=== PATIENT | male | born 1975 | race Caucasian/White ===

== ENCOUNTER 2024-07-17 08:26 | Outpatient (CLI) | payer BC, MEDICAID, SELFPAY ==
--- NOTE | 2024-07-17 08:35 | MR_ITS ---
WS: [id number] MRI HEAD WITHOUT CONTRAST TECHNIQUE: Sagittal T1, T2 axial, T2 axial FLAIR, axial and coronal T1 images, axial susceptibility w eighted imaging, axial diffusion weighted images, and coronal T2 images were obtained. CLINICAL INFORMATION: R41.3 COMPARISON: None. FINDINGS: No evidence of restricted diffusion to suggest acute ischemia. No suspicious intracranial signal abno rmalities. Mild parenchymal volume loss. Normal posterior fossa. Normal vascular flow voids at the sk ull base. No extra-axial fluid collections. No evidence of mass or mass effect. Paranasal sinuses are well aerated. Slight mucosal thickening LEFT posterior ethmoid air cells. Mastoid air cells are well aerated. No he mosiderin on susceptibly weighted images. Normal optic chiasm and pituitary infundibulum. Temporal lo bes and hippocampal formations are normal in appearance. MR/MR head wo con* [id number] IMPRESSION: 1. No evidence of restricted diffusion to suggest acute ischemia. 2. No suspicious intracranial signal normalities. Mild parenchymal volume loss . 3. No hemosiderin on susceptibility-weighted images. 4. Normal optic chiasm and pituitary infundibulum. 5. No other acute findings.
== END 2024-07-17 08:27 | disposition home or self-care (01) ==
LOC: RAD 08:29
PROVIDERS: PCP Nurse Practitioner Family; Visit Provider Nurse Practitioner Family
DX: R41.3 Other amnesia (principal)
CPT/HCPCS: 70551

== ENCOUNTER 2024-08-03 11:40 | Emergency (ER) | payer BC, MEDICAID, SELFPAY ==
--- NOTE | 2024-08-03 11:43 | ECG_ITS ---
[facility] Test Date: 2024-[facility]-03 Pat Name: Clayton Adamson Department: Room: Gender: Male Monitoring Analyst: : 1975 Requested By: Rosemary Damico Order Number: [id number] Crispin MD: Selwyn Humphrey M.D. Measurements Intervals [place] Rate: 125 P: 87 AL: 171 QRS: 135 QRSD: 115 T: 58 QT: 304 QTc: 439 Interpretive Statements SINUS TACHYCARDIA INCOMPLETE RIGHT BUNDLE BRANCH BLOCK POSSIBLE RIGHT VENTRICULAR HYPERTROPHY No previous ECG available for comparison Electronically Signed On 08-03-2024 12:07:12 CDT by Selwyn Humphrey M.D. [id number]
--- NOTE | 2024-08-03 11:43 | XR_ITS ---
WS: [id number] Portable AP upright chest, 08/03/2024 Clinical Data: cp Comparison: PA chest, 09/18/2017 Findings: No nodules, masses or effusions are seen. The heart is normal. The pulmonary vascularity is not increased. No pneumonia or pneumothorax is seen. XR/XR chest 1V portable [id number] Impression: Negative chest.
[2024-08-03 11:48] VITALS: BP 111/73; PULSE 133; TEMP 36.7; O2SAT 98; BMI 21.1
[2024-08-03 12:27] LABS: Basophils % 0.3 %; Eosinophils % 0.2 %; Hematocrit 49.7 % (37-53); Lymphocytes # 2.9 10^3/uL (0.8-4.8); Mean Corpuscular HGB Conc 33.8 g/dL (30-55); Mean Corpuscular Hemoglobin 31.6 pg (27-33); Mean Corpuscular Volume 93.4 fl (82-101); Mean Platelet Volume 9.4 fL (7.4-10.4); Monocytes # 1.9 10^3/uL (0.2-0.9); Monocytes % 12.6 %; Neutrophils # 10.27 10^3/uL (1.8-7.7); Nucleated Red Blood Cells % 0 %; Platelet Count 530 10^3/cmm (157-399); Red Blood Count 5.32 10^6/uL (3.85-5.65); Red Cell Distribution Width 12.9 % (12.1-15.1); White Blood Count 15.32 10^3/uL (3.29-11.43)
[2024-08-03 12:31] LABS: INR 0.94 (0.8-1.2)
[2024-08-03 12:41] LABS: Alanine Aminotransferase 10 U/L (0-41); Alkaline Phosphatase 83 U/L (40-130); Anion Gap 19.3 (5-19); Aspartate Amino Transferase 11 U/L (0-40); Blood Urea Nitrogen 17 mg/dL (6-20); Calcium 10.1 mg/dL (8.5-10.5); Carbon Dioxide 22 mmol/L (22-29); Chloride 92 mmol/L (98-107); Creatinine Clr Calc Pharmacy 80.1925; Globulin 2.6 g/dL (1.3-4.6); Glomerular Filtration Rate 79.1 mL/min (90-130); Glucose 106 mg/dL (65-115); Lipase 27 U/L (13-60); Osmolality Calculated 270 mOsm/kg (285-295); Potassium 4.3 mmol/L (3.5-5.1); Sodium 129 mmol/L (136-145); Total Bilirubin 0.6 mg/dL (0.15-1.2); Total Protein 7.6 g/dL (6.6-8.7); Troponin(5th) Baseline 25 ng/L (0-15)
--- NOTE | 2024-08-03 13:36 | CT_ITS ---
WS: [id number] CT ABDOMEN AND PELVIS WITH CONTRAST HISTORY: upper abd pain TECHNIQUE: Imaging performed of the abdomen and pelvis with IV contrast. Single phase imaging of the abdomen. Coronal and sagittal reformats are submitted. All CT scans at [facility] use at [address] one of these dose optimization techniques: automated exposure control; mA and/or kV adjustment per patient size (includes targeted exams where dose is matched to clinical indication); or iterative re construction. IV CONTRAST: Omnipaque 350; 100 mL IV. Oral contrast: No DLP: 323.47 mGy.cm COMPARISON: None available. Lower thorax: Lung bases are clear. Heart is normal size. No hiatal hernia. Liver/biliary system: Normal size with no intrahepatic dilatation. Gallbladder: Normal. No gallstones or wall thickening. No pericholecystic fluid. Pancreas: Normal size pancreas and pancreatic duct. No adjacent inflammation. Spleen: Normal size spleen. No mass or infarct. Adrenal glands: Normal. Right kidney: Normal. Left kidney: Normal. Aorta: Moderate atherosclerosis with no aneurysm. Lymphadenopathy: None. Free fluid: None. GI tract: Moderate gastric wall thickening. Gastric wall thickening extends towards the antrum. There is no obstruction. Normal small bowel. Normal appendix. No colon obstruction. Mild sigmoid diverticu losis. Abdominal wall: Unremarkable abdominal wall. No hernia. Pelvis: No free fluid or adenopathy within the pelvis. Bones: Unremarkable. CT/CT abdomen pelvis w con* [id number] IMPRESSION: 1. Normal appendix. 2. No renal obstruction. 3. Moderate diffuse gastric wall thickening. Consider gastritis. 4. No GI tract obstruction.
--- NOTE | 2024-08-03 13:37 | ED_ITS ---
HPI - Chest Pain 2 General: Chief Complaint: Chest Pain Stated Complaint: tia events? pain in chest and shoulder Time Seen by Provider: 08/03/24 13:31 Source: patient Mode of arrival: ambulatory Limitations: no limitations History of Present Illness: 48-year-old male states for last 2 days he been having some epigastric pain. States had difficulty swallowing at x 2 and having some pain when he swallows. States has had episodes like this in the past. Has had no vomiting denies any diarrhea said some burning sensation into his chest. Denies any cough or fever Associated symptoms: Reports abdominal pain and nausea; Deny dyspnea, fever(s) or vomiting Related Data Previous Rx's Medication Instructions Recorded ondansetron 4 mg disintegrating 4 mg PO Q6H PRN nausea and 08/03/24 tablet vomiting #14 tabs pantoprazole 40 mg tablet,delayed 40 mg PO DAILY #60 tabs 08/03/24 release (Protonix) Allergies Allergy/AdvReac Type Severity Reaction Status Date / Time Penicillins Allergy Unknown Verified 08/03/24 11:52 Review of Systems 2 Const: Denies: fever(s), chills, body aches or change in appetite ENMT: Denies: throat pain or dental pain Card: Denies: chest pain Resp: Denies: dyspnea GI: Reports: abdominal pain and nausea; Denies: vomiting or diarrhea Musc: Denies: neck pain or back pain Skin/Breast: Denies: rash Neuro: Denies: headache(s) Physical Exam 2 Const: COMMON NORMALS: patient oriented x3 GENERAL APPEARANCE: in distress HENMT: COMMON NORMALS: normocephalic and atraumatic HEAD & SCALP: n ormocephalic and atraumatic Neck/C-Spine: COMMON NORMALS: full ROM and supple Chest: COMMONS NORMALS: normal inspection of the chest Resp: COMMON NORMALS: normal respiratory effort, No retractions, No use of accessory muscles and clear to auscultation bilaterally AUSCULTATION: clear to auscultation bilaterally Cardio: COMMON NORMALS: regular rhythm and No murmurs present (Cardio) R ATE: tachycardic RHYTHM: regular rhythm GI: COMMON NORMALS: Normal to inspection, nondistended, normoactive bowel sounds present, Soft to palpation, non-tender and no masses PALPATION: Yes Soft to palpation Extremity: COMMON NORMALS: normal to inspection and full ROM Neuro: COMMON NORMALS: patient oriented x3, moves all extremities and no focal motor deficits Psych: COMMON NORMALS: mental status grossly normal, Normal thought process present and cooperative THOUGHT PROCESS: Normal thought process present Skin: COMMON NORMALS: no rashes or lesions noted and no wounds GENERAL SKIN EXAM: no rashes or lesions noted Course 2 Vital Signs: Vital signs: Vital Signs Temperature 98.1 F 08/03/24 11:48 Pulse Rate 90 08/03/24 15:58 Blood Pressure 118/84 08/03/24 15:58 Pulse Oximetry 97 08/03/24 15:58 Oxygen Delivery Me thod Room Air 08/03/24 11:48 MDM - Chest Pain Medical Decision Making Patient presents here with epigastric pain consistent with a likely gastritis CT showed gastritis as well as pain was resolved here with GI cocktail no signs of acute coronary syndrome we will start him on Protonix we will get him follow-up with surgery as he likely needs a scope in the future he is return if worsening he understands agrees to plan Medical Records I reviewed the patient's medical records. Lab Data I reviewed the patient's lab results. 08/03/24 12:02 08/03/24 12:02 Radiology Impressions Chest X-Ray 08/03/24 11:43 Impression: Negative chest. Abdomen/Pelvis CT 08/03/24 13:36 IMPRESSION: 1. Normal appendix. 2. No renal obstruction. 3. Moderate diffuse gastric wall thickening. Consider gastritis. 4. No GI tract obstruction. Laboratory Results WBC 15.32 10^3/uL (3.29-11.43) H 08/03/24 12:02 RBC 5.32 10^6/uL (3.85-5.65) 08/03/24 12:02 Hgb 16.80 g/dL (11.27-16.99) 08/03/24 12:02 Hct 49.7 % (37-53) 08/03/24 12:02 MCV 93.4 fl (82-101) 08/03/24 12:02 MCH 31.6 pg (27-33) 08/03/24 12:02 MCHC 33.8 g/dL (30-55) 08/03/24 12:02 RDW 12.9 % (12.1-15.1) 08/03/24 12:02 Plt Count 530 10^3/cmm (157-399) H 08/03/24 12:02 MPV 9.4 fL (7.4-10.4) 08/03/24 12:02 Neut % (Auto) 67.0 % 08/03/24 12:02 Lymph % (Auto) 19.0 % 08/03/24 12:02 [place] % (Auto) 12.6 % 08/03/24 12:02 Eos % (Auto) 0.2 % 08/03/24 12:02 Baso % (Auto) 0.3 % 08/03/24 12:02 Neut # (Auto) 10.27 10^3/uL (1.8-7.7) H 08/03/24 12:02 Lymph # (Auto) 2.9 10^3/uL (0.8-4.8) 08/03/24 12:02 [place] # (Auto) 1.9 10^3/uL (0.2-0.9) H 08/03/24 12:02 Eos # (Auto) 0.0 10^3/uL (0.0-0.8) 08/03/24 12:02 Baso # (Auto) 0.0 10^3/uL (0.0-0.1) 08/03/24 12:02 Nucleated RBC % (auto) 0 % 08/03/24 12:02 Nucleated RBCs # 0.0 /100WBC 08/03/24 12:02 PT 12.90 SECONDS (12.1-14.9) 08/03/24 12:02 INR 0.94 (0.8-1.2) 08/03/24 12:02 Sodium 129 mmol/L (136-145) L 08/03/24 12:02 Potassium 4.3 mmol/L (3.5-5.1) 08/03/24 12:02 Chloride 92 mmol/L (98-107) L 08/03/24 12:02 Carbon Dioxide 22 mmol/L (22-29) 08/03/24 12:02 Anion Gap 19.3 (5-19) H 08/03/24 12:02 BUN 17 mg/dL (6-20) 08/03/24 12:02 Creatinine 1.0 mg/dL (0.7-1.2) 08/03/24 12:02 GFR Calculation 79.1 mL/min (90-130) L 08/03/24 12:02 Glucose 106 mg/dL (65-115) 08/03/24 12:02 Calculated Osmolality 270 mOsm/kg (285-295) L 08/03/24 12:02 Calcium 10.1 mg/dL (8.5-10.5) 08/03/24 12:02 Total Bilirubin 0.6 mg/dL (0.15-1.2) 08/03/24 12:02 AST 11 U/L (0-40) 08/03/24 12:02 ALT 10 U/L (0-41) 08/03/24 12:02 Alkaline Phosphatase 83 U/L (40-130) 08/03/24 12:02 Troponin T Baseline 25 ng/L (0-15) H 08/03/24 12:02 Troponin T 120 Minute 23.52 ng/L (0-15) H 08/03/24 14:00 Delta Troponin T -1.48 ABS# (0-10) L 08/03/24 14:00 Total Protein 7.6 g/dL (6.6-8.7) 08/03/24 12:02 Albumin 5.0 g/dL (3.5-5.2) 08/03/24 12:02 Globulin 2.6 g/dL (1.3-4.6) 08/03/24 12:02 Lipase 27 U/L (13-60) 08/03/24 12:02 All radiology interpretation(s) finalized by discharge EKG Data EKG 1: I personally reviewed and interpreted this EKG as follows: EKG interpretation date: 08/03/24 EKG interpretation time: 11:43 Interpretation: sinus tach hr [address] elevation qrs 115 qtc 378 EKG 2: I personally reviewed and interpreted this EKG as follows: EKG interpretation date: 08/03/24 EKG interpretation time: 14:03 Interpretation: nsr hr [address] elevation qrs 92 qtc 411 Discharge Plan Discharge Patient Disposition: Home Clinical Impression: Abdominal pain Condition: Stable Prescriptions: New pantoprazole [Protonix] 40 mg tablet,delayed release (DR/EC) 40 mg PO DAILY Qty: 60 0RF ondansetron 4 mg tablet,disintegrating 4 mg PO Q6H PRN (Reason: nausea and vomiting) Qty: 14 0RF Discharge Orders: Discharge ED (Routine); Ordered 08/03/24 Ordered By: Rosemary Damico Referrals: Bonnie Barger [Primary Care Provider] - Discharge Diet: Advance as tolerated Discharge Activity: Resume usual activity Patient Instructions: Gastritis (ED), Abdominal Pain (ED) Coding Level of Care Code ED Qa Analyst for Leonides Zuñiga
--- NOTE | 2024-08-03 13:43 | ECG_ITS ---
[facility]03 Pat Name: Clayton Adamson Department: Room: Gender: Male Vacation Guide: : 1975 Requested By: Rosemary Damico Order Number: [id number] Crispin MD: Selwyn Humphrey M.D. Measurements Intervals [place] Rate: 94 P: 77 FL: 134 QRS: 22 QRSD: 92 T: 62 QT: 359 QTc: 450 Interpretive Statements SINUS RHYTHM POSSIBLE LEFT ATRIAL ENLARGEMENT [-0.1mV P-WAVE IN V1/V2] INDETERMINATE AXIS Compared to ECG 08/03/2024 11:43:28 No significant change Electronically Signed On 08-03-2024 17:17:29 CDT by Selwyn Humphrey M.D. [email or web address]
[2024-08-03] MEDS: lidocaine 2% viscous 15 ML, aluminum-mag hydrox-simethicon 30 ML, sucralfate oral liq 1 GM PO (13:50)
[2024-08-03] MEDS: ondansetron 2 mg/ML SDV 2 mL 4 MG IVP (13:50)
[2024-08-03] MEDS: iohexol 350 mg/mL 500 mL Btl (per mL) IV (14:31)
[2024-08-03 14:53] LABS: Troponin 5 2HR 23.52 ng/L (0-15)
[2024-08-03 14:55] LABS: Troponin 5 2HR Delta -1.48 ABS# (0-10)
[2024-08-03 15:25] VITALS: BP 110/88; PULSE 86; O2SAT 96
[2024-08-03 15:58] VITALS: BP 118/84; PULSE 90; O2SAT 97
--- NOTE | 2024-08-04 07:35 | DCPLANNER ---
messaged gen surg for er f/u
== END 2024-08-03 15:59 | disposition home or self-care (01) ==
PROVIDERS: Emergency Provider Emergency Medicine; PCP Nurse Practitioner Family
DX: R10.9 Unspecified abdominal pain (principal)
CPT/HCPCS: 36415; 71045; 74177; 80053; 83690; 84484; 85025; 85610; 93005; 96374; 99285; J2405

== ENCOUNTER 2024-09-05 06:51 | Day surgery (SDC) | payer BC, MEDICAID, SELFPAY ==
--- NOTE | 2024-09-05 06:07 | W.PM.OPSUD ---
Surgery/Procedure H&P Update DATE OF PROCEDURE: September 05, 2024 DATE H&P PERFORMED: 08/23/24 H&P UPDATE INFORMATION: I have reviewed H&P completed within last 30 days, I have examined patient prior to procedure, No changes to prior documentation and H&P is in [facility] EMR on date indicated PLANNED PROCEDURE: Operation Date: 09/05/24 08:00 Proposed Procedures p EGD 53361, 39945, G0121, K29.70(Not Applicable) - Dustin Mohamud MD s Colonoscopy(Not Applicable) - Dustin Mohamud MD
[2024-09-05 07:03] VITALS: BP 107/89; PULSE 85; RESP 16; TEMP 36.3; O2SAT 97; BMI 22.3
[2024-09-05] MEDS: sodium chloride 0.9% 500 ML 15 ML IV (07:22)
--- NOTE | 2024-09-05 07:56 | ANES.PREANE2 ---
Pre-Anesthetic Assessment Height/Weight: Height 5 ft 4 in Weight 130 lb Temp Pulse Resp BP Pulse Ox O2 Del Method 97.3 F L 85 16 107/89 97 Room Air 09/05/24 07:03 09/05/24 07:03 09/05/24 07:03 09/05/24 07:03 09/05/24 07:03 09/05/24 07:03 Preop Diagnosis: Screening colonoscopy/GERD Operation Date: 09/05/24 08:00 Proposed Procedures p EGD 22783, 17544, G0121, K29.70(Not Applicable) - Dustin Mohamud MD s Colonoscopy(Not Applicable) - Dustin Mohamud MD Last intake: Intake Last Liquid Date 09/04/24 Last Liquid Time 23:00 Last Solid Date 09/03/24 Last Solid Time 12:00 Social Tobacco and No alcohol Exam alert, oriented x 3, clear to auscultation bilaterally and regular rate & rhythm Airway Submandibular: within normal limits Cervical ROM: within normal limits Mallampati: Class II Dentition: full Comments: Comments: Very poor dentition, denies any loose Anesthetic Plan ASA status: 2 Anesthesia: MAC Other: No prior issues with anesthesia Completed bowel prep History of GERD, on Protonix Current smoker, denies inhaler use Patient denies any cardiac issues Prior TIAs, no residual symptoms METs greater than 4 Plan for MAC anesthetic Medications/Allergies Home Medications Medication Instructions Recorded Confirmed Last Taken Type ondansetron 4 mg disintegrating 4 mg PO Q6H PRN nausea and 08/03/24 08/30/24 09/03/24 Rx tablet vomiting #14 tabs pantoprazole 40 mg tablet,delayed 40 mg PO DAILY #60 tabs 08/03/24 08/30/24 09/03/24 Rx release (Protonix) Allergies Allergy/AdvReac Type Severity Reaction Status Date / Time Penicillins Allergy Unknown Verified 08/30/24 10:17 Current Medications Generic Name Dose Route Start Last Admin Trade Name Freq PRN Reason Stop Dose Admin Sodium Chloride 500 mls @ 15 mls/hr 09/05/24 06:59 09/05/24 07:22 Sodium Chloride 0.9% IV 09/06/24 06:58 15 mls/hr .Q24H PRN Administration COLONOSCOPY FLUIDS PFSH Anesthesia Family History (Updated 11/20/24 @ 10:19 by AGUSTINA Marques) Mother Cancer breast Heart attack Father Heart attack Social History (Updated 08/23/24 @ 10:19 by AGUSTINA Marques) Smoking and tobacco/nicotine status: current every day tobacco/nicotine user cigarettes Data Anesthesia Cardiac Studies: No Data to Display
[2024-09-05 09:02] VITALS: BP 131/87; PULSE 81; RESP 14; TEMP 36.4; O2SAT 99
[2024-09-05 09:17] VITALS: BP 142/97; PULSE 78; RESP 14; O2SAT 99
--- NOTE | 2024-09-05 09:35 | ANE.PACU2 ---
Inpatient post-anesthesia follow up: Airway intact: Yes Vital signs: Temperature 97.5 F Pulse Rate 78 Respiratory Rate 14 Blood Pressure 142/97 Pulse Oximetry 99 Oxygen Delivery Me thod Room Air Oxygen Flow Rate Fraction of Inspir ed Oxygen Hydration adequate: Yes Nausea and vomiting: No Pain level: 1 Mental status: Baseline
== END 2024-09-05 09:35 | disposition home or self-care (01) ==
PROVIDERS: PCP Nurse Practitioner Family; Visit Provider Surgery
PROC: 0DJ08ZZ Inspection of Upper Intestinal Tract, Via Natural or Artificial Opening Endoscopic (ICD-10-PCS; CPT 43235; principal; 2024-09-05 08:00)
PROC: 0DJD8ZZ Inspection of Lower Intestinal Tract, Via Natural or Artificial Opening Endoscopic (ICD-10-PCS; CPT 45378; 2024-09-05 08:00)
DX: Z12.11 Encounter for screening for malignant neoplasm of colon (principal); K29.70 Gastritis, unspecified, without bleeding; K21.00 Gastro-esophageal reflux disease with esophagitis, without bleeding; F17.210 Nicotine dependence, cigarettes, uncomplicated; K29.50 Unspecified chronic gastritis without bleeding; D12.8 Benign neoplasm of rectum; Z86.73 Personal history of transient ischemic attack (TIA), and cerebral infarction without residual deficits
CPT/HCPCS: 43239; 45380; 88305; 88342; J2405; J2704; J7040

== ENCOUNTER 2025-05-09 09:51 | Outpatient (CLI) | payer BC, MEDICAID, SELFPAY ==
--- NOTE | 2025-05-09 10:00 | US_ITS ---
WS: [id number] RIGHT UPPER QUADRANT ULTRASOUND HISTORY: Biliary Colic COMPARISON: CT 08/03/2024 Liver: 14.6 cm in length. Normal size liver and echogenicity. No bile duct dilatation or mass. Portal Vein: Normal hepatopetal flow with monophasic waveform. Gallbladder: Normally distended gallbladder with no stones or wall thickening. CBD: 0.2 cm Pancreas: Normal size and echogenicity. Right kidney: 10.0 cm in length. Normal size and echogenicity. No hydronephrosis or mass. Aorta and IVC: Unremarkable abdominal aorta and IVC. No ascites. US/US gall bladder [id number] IMPRESSION: Normal right upper quadrant ultrasound.
== END 2025-05-09 09:52 | disposition home or self-care (01) ==
LOC: RAD 09:52
PROVIDERS: PCP Nurse Practitioner Family; Visit Provider Surgery
DX: K80.50 Calculus of bile duct without cholangitis or cholecystitis without obstruction (principal)
CPT/HCPCS: 76705

== ENCOUNTER 2025-05-23 09:35 | Outpatient (CLI) | payer BC, MEDICAID, SELFPAY ==
--- NOTE | 2025-05-23 10:00 | NM_ITS ---
WS: [id number] NUCLEAR MEDICINE HIDA SCAN WITH GALLBLADDER EJECTION FRACTION HISTORY: abdominal pain COMPARISON: Gallbladder ultrasound 05/09/2025 TECHNIQUE: The patient was intravenously injected with 7.8 mCi of TC99m Mebrofenin. Immediate imaging over the right upper quadrant was followed by 5 minute image and additional images for a total of 60 minutes. Normal uptake of radiotracer throughout the liver. Activity identified in the gallbladder at 10 minutes and well distended by 60 minutes. Activity in the proximal small bowel was seen by 10 minutes. Good washout of the radiotracer from the liver by 60 minutes. The patient then drank 8 ounces of Ensure Plus. Ejection fraction at 60 minutes was 70%. Normal GB ejection fraction is 35-75%. Post fatty meal symptoms: None. NM/NM hepatobiliary w phar* [id number] IMPRESSION: 1. Normal HIDA scan. 2. Normal gallbladder ejection fraction.
== END 2025-05-23 09:36 | disposition home or self-care (01) ==
PROVIDERS: PCP Nurse Practitioner Family; Visit Provider Surgery
DX: R10.9 Unspecified abdominal pain (principal)
CPT/HCPCS: 78227; A9537